=== PATIENT | male | born 1980 | race Caucasian/White ===

== ENCOUNTER 2019-02-13 10:24 | Inpatient (IN) | payer MEDICAID ==
[2019-02-13] MEDS: SOD CHLORIDE 0.9% 1,000 ML IV ×2 (14:22→23:51)
[2019-02-13 14:25] LABS: ADD MAN DIFF? NO
[2019-02-13 14:26] LABS: WHITE BLOOD COUNT 6.7 10^3/ul (4.8-10.8)
[2019-02-13 14:26] LABS: BASOPHIL # 0.1 10^3/ul (0.0-0.1); BASOPHILS % 1.1 % (0.0-2.0); EOSINOPHILS # 0.5 10^3/ul (0.0-0.5); EOSINOPHILS % 7.2 % (0.0-7.0); HEMATOCRIT 44.1 % (42.0-52.0); HEMOGLOBIN 14.9 g/dl (14.0-18.0); LYMPHOCYTES % 30.2 % (15.0-51.0); MEAN CORPUSCULAR HEMOGLOBIN 30.2 pg (29.0-33.0); MEAN CORPUSCULAR HGB CONC 33.8 g/dl (32.0-37.0); MEAN CORPUSCULAR VOLUME 89.3 fl (82.0-101.0); MEAN PLATELET VOLUME 10.9 fl (7.4-10.4); MONOCYTE # 0.6 10^3/ul (0.3-0.9); MONOCYTES % 9.2 % (0.0-11.0); NEUTROPHIL # 3.5 10^3/ul (1.6-7.5); PLATELET COUNT 181 10^3/UL (140-415); RED BLOOD COUNT 4.94 10^6/ul (4.70-6.10); RED CELL DISTRIBUTION WIDTH 11.9 % (11.5-14.5)
[2019-02-13 14:41] LABS: ALANINE AMINOTRANSFERASE 30 IU/L (13-69); ALBUMIN 4.7 g/dl (3.3-4.9); ALBUMIN/GLOBULIN RATIO 1.42; ALKALINE PHOSPHATASE 51 IU/L (42-121); ANION GAP 8 (5-13); ASPARTATE AMINO TRANSFERASE 26 IU/L (15-46); BILIRUBIN,INDIRECT 0.5 mg/dl (0-1.1); BILIRUBIN,TOTAL 0.5 mg/dl (0.2-1.3); BLOOD UREA NITROGEN 19 mg/dl (7-20); CALCIUM 9.7 mg/dl (8.4-10.2); CARBON DIOXIDE 28 mmol/L (21-31); CHLORIDE 107 mmol/L (97-110); CREATININE 0.84 mg/dl (0.61-1.24); Estimated GFR > 60 mL/min (>60); GLUCOSE 92 mg/dl (70-220); POTASSIUM 4.6 mmol/L (3.5-5.1); SODIUM 143 mmol/L (135-144)
[2019-02-13 14:45] LABS: INR 0.97
[2019-02-13 14:46] LABS: PARTIAL THROMBOPLASTIN TIME 26.3 Sec (23.0-35.0)
[2019-02-13 19:25] LABS: C-REACTIVE PROTEIN < 0.5 mg/dl (0.0-0.9)
[2019-02-13 19:26] LABS: TROPONIN-I < 0.012 ng/ml (0.000-0.120)
[2019-02-13 20:24] LABS: ERYTHROCYTE SEDIMENTATION RATE 3 mm/Hr (0-15)
[2019-02-13 21:30] LABS: CSF RBC 0 /uL (0-0); CSF WBC 2 /cmm (0-10)
[2019-02-13 21:39] LABS: GLUCOSE,CSF 50 mg/dl (50-80)
[2019-02-13 21:41] LABS: CSF CLARITY CLEAR; CSF#TUBE COUNT TUBE#1; CSF#TUBES REC'D 4
[2019-02-13 21:41] LABS: CSF COLOR COLORLESS
[2019-02-13 21:47] LABS: CSF RBC 0 /uL (0-0); CSF WBC 1 /cmm (0-10)
[2019-02-13 21:50] LABS: CSF CLARITY CLEAR; CSF COLOR COLORLESS; CSF#TUBE COUNT TUBE#4; CSF#TUBES REC'D 4
[2019-02-13] MEDS ORDERED: BISACODYL (EC) 5 MG TAB PO (22:00)
[2019-02-13] MEDS ORDERED: DOCUSATE SODIUM 100 MG CAP PO (22:00)
[2019-02-13] MEDS ORDERED: ACETAMINOPHEN 650MG/20.3ML CUP PO (22:00)
[2019-02-13] MEDS ORDERED: HYDROCODONE/APAP (5/325) TAB PO (22:00)
[2019-02-13] MEDS ORDERED: ONDANSETRON 4 MG INJ IV (22:00)
[2019-02-13 22:45] LABS: TOTAL PROTEIN,CSF 67 mg/dl (12-60)
[2019-02-13] MEDS: FAMOTIDINE 20 MG TAB PO (23:50)
[2019-02-14] MEDS: FAMOTIDINE 20 MG TAB PO (09:12)
[2019-02-14] MEDS: SOD CHLORIDE 0.9% 1,000 ML IV (11:12)
== END 2019-02-14 19:45 | disposition home or self-care (01) | DRG 92 ==
LOC: FTE 10:24 → ICU 19:26
PROVIDERS: Family Medicine
PROC: 009U3ZX Drainage of Spinal Canal, Percutaneous Approach, Diagnostic (ICD-10-PCS; principal; 2019-02-13)
DX: G93.0 Cerebral cysts (principal); G96.0 Cerebrospinal fluid leak
CPT/HCPCS: 70450; 70553; 71045; 80053; 82945; 83036; 84157; 84484; 85025; 85610; 85651; 85730; 86140; 87070; 87081; 89051; 93005; 96360; 96361; 99285-25